=== PATIENT | female | born 1965 | race Caucasian/White ===

== ENCOUNTER → 2018-02-10 | Outpatient (CLI) | payer OTHER, BC ==
[~2018-02-10] MED LIST: ACET-2222 PO; ASP81CT PO; ATOR40TA70 PO; AZIT-21 PO; CPR500T PO; CYCL10TA9 PO; DCS100C PO; DICY10CA26 PO; DICY20TA57 PO; FIBER SUPPLEMENT; HYDR-3583 PO; HYDR12.56 PO; HYDR1TAB PO; HYOS0.1283 SL; LISI1TAB10 PO; LORA1TAB59 PO; MECL-106 PO; MECL25TA3 PO; METR500T PO; OMEP20TA7 PO; ONDA4TAB8 PO; PRCD5U PO; PRD10T PO; RANI-515 PO; RANI150C11 PO; SCOP1PAT11 TD; SUCR1ORA5 PO; TRIA10.8 NSEACH
--- NOTE | 2018-02-10 20:26 | Diagnostic Imaging Report ---
INDICATION: Injury to head EXAM: Noncontrast brain CT is performed FINDINGS: There is a punctate area of increased density in the right frontal lobe near the cohn-white junction, which may represent a punctate intraparenchymal hemorrhage. There is no subdural or epidural collection. Ventricles are normal in size. There are no other focal parenchymal abnormalities in the brain. Calvarial windows show no fracture. IMPRESSION: Punctate area of hyperdensity in the right frontal lobe near the cohn-white junction, which may represent a punctate area of intraparenchymal hemorrhage. This finding was not seen on the prior CT of 08/21/2015. There is no other abnormal finding. Findings were called to Alfonso Vela APRN, at the time of dictation. Dictated by: Dictated on workstation # [id number]
== END ==
LOC: RAD 18:34
PROVIDERS: ATTEND Nurse Practitioner Family
DX: S09.90XA Unspecified injury of head, initial encounter (principal); K57.32 Diverticulitis of large intestine without perforation or abscess without bleeding; I10 Essential (primary) hypertension
CPT/HCPCS: 70450

== ENCOUNTER → 2018-02-12 | Outpatient (CLI) | payer OTHER, BC ==
--- NOTE | 2018-02-12 17:55 | Diagnostic Imaging Report ---
PROCEDURE: CT head without contrast. TECHNIQUE: Multiple contiguous axial images were obtained through the brain without the use of intravenous contrast. INDICATION: Intracranial hemorrhage. FINDINGS: The recent CT head exam performed on 02/10/2018 raised the question of a minute area of hemorrhage in the right frontal lobe. On this exam, there is no sign of hemorrhage in the right frontal lobe. This finding could represent a minute parenchymal hemorrhage which is subsequently resolved. This could have also been related to volume averaging. The overall appearance of the brain is otherwise stable. There is no mass, shift of the midline, or hemorrhage to indicate an acute abnormality. The ventricles are stable in size. The bone windows show no sign of a fracture or of a destructive lesion. The orbits and sinuses are not visualized in their entirety; where visualized, there is no acute abnormality. IMPRESSION: 1. The small area of increased density in the right frontal lobe seen on the prior exam is not identified on this study. Whether that finding was related to a small parenchymal contusion which has subsequently resolved or volume averaging is not certain. 2. There is no acute intracranial abnormality noted. Dictated by: Dictated on workstation # [id number]
== END ==
LOC: RAD 15:47
PROVIDERS: ATTEND Nurse Practitioner Family
DX: S06.301A Unspecified focal traumatic brain injury with loss of consciousness of 30 minutes or less, initial encounter (principal); S39.012A Strain of muscle, fascia and tendon of lower back, initial encounter; S06.0X1A Concussion with loss of consciousness of 30 minutes or less, initial encounter; K57.32 Diverticulitis of large intestine without perforation or abscess without bleeding; I10 Essential (primary) hypertension; W01.10XA Fall on same level from slipping, tripping and stumbling with subsequent striking against unspecified object, initial encounter
CPT/HCPCS: 70450

== ENCOUNTER 2020-02-02 04:58 | Observation (INO) | payer BC, OTHER ==
[~2020-02-02] VITALS: Ht 155 cm; Wt 95.0 kg
[~2020-02-02 04:58] MED LIST changes: -LISI1TAB10 PO; +LISI1TAB26 PO; -MECL-106 PO; +MECL-149 PO; -RANI-515 PO; +RANI-609 PO
[2020-02-02] MEDS ORDERED: PANTOPRAZOLE 40 MG (PROTONIX) VIAL IV ONE (05:30)
[2020-02-02] MEDS ORDERED: ASPIRIN 81 MG CHEW (CHILDREN'S ASA) PO ONE (05:30)
[2020-02-02] MEDS ORDERED: ONDANSETRON 4 MG/2 ML (SDV) Z0FRAN IVP ONE (05:30)
[2020-02-02 05:31] LABS: BASOPHILS % (AUTO) 0 % (0-10); EOSINOPHILS # (AUTO) 0.1 10^3/uL (0.0-0.3); EOSINOPHILS % (AUTO) 2 % (0-10); HEMATOCRIT 41 % (35-52); HEMOGLOBIN 13.4 g/dL (11.5-16.0); LYMPHOCYTES # (AUTO) 2.1 10^3/uL (1.0-4.0); LYMPHOCYTES % (AUTO) 31 % (12-44); MEAN CORPUSCULAR HEMOGLOBIN 32 pg (25-34); MEAN CORPUSCULAR HGB CONC 32 g/dL (32-36); MEAN CORPUSCULAR VOLUME 98 fL (80-99); MEAN PLATELET VOLUME 10.9 fL (9.0-12.2); MONOCYTES # (AUTO) 0.3 10^3/uL (0.0-1.0); MONOCYTES % (AUTO) 4 % (0-12); NEUTROPHILS # (AUTO) 4.2 10^3/uL (1.8-7.8); NEUTROPHILS % (AUTO) 62 % (42-75); PLATELET COUNT 178 10^3/uL (130-400); WHITE BLOOD COUNT 6.8 10^3/uL (4.3-11.0)
[2020-02-02 05:45] LABS: ALBUMIN 4.1 GM/DL (3.2-4.5); CHLORIDE 105 MMOL/L (98-107); POTASSIUM 3.7 MMOL/L (3.6-5.0); SODIUM 143 MMOL/L (135-145)
[2020-02-02 05:46] LABS: AMYLASE 51 U/L (25-125)
[2020-02-02 05:47] LABS: CALCIUM 8.5 MG/DL (8.5-10.1)
[2020-02-02 05:48] LABS: GLUCOSE 101 MG/DL (70-105)
[2020-02-02 05:49] LABS: BILIRUBIN,TOTAL 0.5 MG/DL (0.1-1.0); CARBON DIOXIDE 26 MMOL/L (21-32)
[2020-02-02 05:50] LABS: INR 0.9 (0.8-1.4); PROTHROMBIN TIME PATIENT 12.7 SEC (12.2-14.7)
[2020-02-02 05:51] LABS: ALKALINE PHOSPHATASE 85 U/L (40-136); CREATININE SERUM 0.82 MG/DL (0.60-1.30); GFR ESTIMATED > 60
[2020-02-02 05:52] LABS: BUN/CREATININE RATIO 16
[2020-02-02 05:54] LABS: ALANINE AMINOTRANSFERASE 35 U/L (0-55); MAGNESIUM 2.1 MG/DL (1.6-2.4)
[2020-02-02 05:55] LABS: CREATINE KINASE 72 U/L (29-168); LIPASE 21 U/L (8-78)
--- NOTE | 2020-02-02 06:17 | ED Chest Pain ---
General Chief Complaint: Chest Pain Stated Complaint: CP,BACK PAIN Nursing Triage Note: woke up with burning epigastric pain approx. 0430 Nursing Sepsis Screen: No Definite Risk Source: patient History of Present Illness Date Seen by Provider: Feb 02, 2020 Time Seen by Provider: 05:10 Initial Comments PT ARRIVES VIA POV FROM HOME STATES SHE WOKE UP AT 0400 WITH CHEST PAIN AND EPIGASTRIC PAIN, RADIATING STRAIGHT THROUGH TO BACK/ BETWEEN SHOULDER BLADES RATES PAIN 9/10 NOTHING WORSENS OR IMPROVES PAIN NO SHORTNESS OF BREATH NO COUGH NO FEVER + NAUSEA, NO VOMITING NO SWELLING IN LEGS/ FEET OR PAIN IN CALVES HEART WAS BEATING REALLY HARD AND FAST WHEN SHE WOKE UP--THAT HAS IMPROVED NO HISTORY OF SIMILAR PT HAS HAD CHOLECYSTECTOMY IN THE PAST, HAS HAD A NORMAL STRESS TEST YEARS AGO. HAS HISTORY OF HTN--HAS NOT SEEN A DR IN A LONG TIME--WENT TO [facility] FOR FIRST AND ONLY TIME, AND WAS GIVEN RX FOR BLOOD PRESSURE MEDICATION--3 MONTH SUPPLY.- WAS A LONG TIME AGO. HAS CHRONIC LOWER BACK PAIN AND WEARS A TENS UNIT ON LOWER BACK PAIN THAT SHE IS HAVING IN HER UPPER BACK IS NOT THE SAME HER CHRONIC LOWER BACK PAIN HAS HAD EGD AND COLONOSCOPY IN THE PAST, AND NO STOMACH PROBLEMS, AND INCIDENTAL FINDING OF DIVERTICULAR DISEASE HAS BEEN ADMITTED HERE IN THE PAST FOR CHEST PAIN, LAST TIME WAS IN 2018 PCP: NAE --HAS ONLY BEEN THERE ONE TIME Allergies and Home Medications Allergies Coded Allergies: ciprofloxacin (Verified Allergy, Mild, 08/21/15) metronidazole (Verified Allergy, Mild, 08/21/15) latex (Unverified Allergy, Unknown, 06/06/15) Uncoded Allergies: STERI STRIPS (Allergy, Mild, RASH/ SORES, 11/02/09) Home Medications Cyclobenzaprine HCl 10 Mg Tablet, 10 MG PO DAILY PRN for MUSCLE SPASMS, (Reported) Diclofenac Sodium 20 Gm Gel..gram., 1 GM TP TID PRN for PAIN-BREAKTHROUGH, (Reported) APPLY TO BACK Diphenhydramine HCl 25 Mg Capsule, 25-50 MG PO Q6H PRN for HEADACHE SYMPTOMS, (Reported) Gabapentin 300 Mg Capsule, 300 MG PO BID, (Reported) Hydrocodone/Acetaminophen 1 Each Tablet, 1 EACH PO Q4H Prescribed by: CLARIBEL GORDON on 02/02/20 4118 Ibuprofen 800 Mg Tablet, 800 MG PO TID PRN for PAIN-MILD, (Reported) Magnesium Oxide 400 Mg Tablet, 400 MG PO DAILY, (Reported) Ondansetron HCl 4 Mg Tablet, 4 MG PO Q8H PRN for NAUSEA/VOMITING-1ST LINE, (Reported) Pantoprazole Sodium 40 Mg Tablet.dr, 40 MG PO DAILY Prescribed by: CLARIBEL GORDON on 02/02/201555 Sucralfate 1 Gm Tablet, 1 GM PO QID Prescribed by: CLARIBEL GORDON on 02/02/201555 Sumatriptan Succinate 100 Mg Tablet, 100 MG PO UD PRN for MIGRAINE, (Reported) 1 TAB AT ONSET OF MIGRAINE AND MAY REPEAT 1 DOSE AFTER 2 HOURS IF HEADACHE PERSISTS. Patient Home Medication List Home Medication List Reviewed: Yes Review of Systems Review of Systems Constitutional: no symptoms reported; No chills, No diaphoresis, No dizziness, No fever, No malaise, No weakness EENTM: No Symptoms Reported Respiratory: No Symptoms Reported; Denies Cough, Denies Shortness of Air Cardiovascular: See HPI, Chest Pain; Denies Edema, Denies Lightheadedness; Palpitations; Denies Syncope Gastrointestinal: See HPI, Abdominal Pain; Denies Diarrhea; Nausea; Denies Vomiting Genitourinary: No Symptoms Reported Musculoskeletal: see HPI, back pain Skin: no symptoms reported Psychiatric/Neurological: No Symptoms Reported Endocrine: No Symptoms Reported Hematologic/Lymphatic: No Symptoms Reported Past Mmtnjtd-Hgluom-Mrhojp Hx Past Med/Social Hx: Reviewed and Corrections made Patient Social History Alcohol Use: Rarely Uses Recreational Drug Use: No Smoking Status: Current Everyday Smoker (1/2 PPD) Type Used: Cigarettes (1/2 PPD) Recent Foreign Travel: No Contact w/Someone Who Travel: No Recent Infectious Disease Expo: No Recent Hopitalizations: No Immunizations Up To Date Tetanus Booster (TDap): Unknown PED Vaccines UTD: Yes Date of Influenza Vaccine: May 04, 2012 Seasonal Allergies Seasonal Allergies: No Past Medical History Surgeries: Yes (OVARIAN CYSTS; EGD/COLONOSCOPY; X 4;HYST/BSO) Abdominal, Appendectomy, Section, Gallbladder, Hysterectomy, Oophorectomy Respiratory: Yes (tobaccoism, PULMONARY NODULES) Cardiac: Yes (NEGATIVE STRESS TEST 2012 & 06/2017-EF 77%, ECHO 2013 WITH EF 60% ) Hypertension Neurological: No : No Reproductive Disorders: Yes (BENIGN UTERINE MASS) Female 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 Sexually Transmitted Disease: No HIV/AIDS: No Genitourinary: Yes Kidney Infection, Bladder Infection Gastrointestinal: Yes (S/P REAL; APPY; ) Gastroesophageal Reflux, Diverticulosis, Gall Bladder Disease Musculoskeletal: Yes Chronic Back Pain Endocrine: No HEENT: No Cancer: No Psychosocial: No Integumentary: No Blood Disorders: No Family Medical History Cancer 19 FATHER Family history: Hypertension 19 FATHER 19 MOTHER G8 BROTHER History of - anemia G8 SISTER Cancer Physical Exam Vital Signs Vital Signs - First Documented Capillary Refill : Less Than 3 Seconds Height, Weight, BMI Height: 5'1.00" Weight: 188lbs. 0.0oz. [id number]; 39.00 BMI Method:Stated General Appearance: No Apparent Distress, WD/WN, Obese HEENT: PERRL/EOMI Neck: Normal Inspection Respiratory: Chest Non Tender, Normal Breath Sounds, No Accessory Muscle Use, No Respiratory Distress Cardiovascular: Regular Rate, Rhythm, No Edema, No JVD, No Murmur, Normal Peripheral Pulses Gastrointestinal: Normal Bowel Sounds, No Organomegaly, No Pulsatile Mass, Soft, Tenderness (MILD EPIGASTRIC TENDERNESS) Extremity: Normal Capillary Refill, Normal Inspection, Normal Range of Motion, Non Tender, No Calf Tenderness, No Pedal Edema Neurologic/Psychiatric: Alert, Oriented x3, No Motor/Sensory Deficits, Normal 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, 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 Norm as Tested Skin: Normal Color, Warm/Dry Progress/Results/Core Measures Results/Orders Lab Results Laboratory Tests Test 02/02/20 05:15 Range/Units White Blood Count 6.8 4.3-11.0 10^3/uL Red Blood Count 4.23 3.80-5.11 10^6/uL Hemoglobin 13.4 11.5-16.0 g/dL Hematocrit 41 35-52 % Mean Corpuscular Volume 98 80-99 fL Mean Corpuscular Hemoglobin 32 25-34 pg Mean Corpuscular Hemoglobin Concent 32 32-36 g/dL Red Cell Distribution Width 12.7 10.0-14.5 % Platelet Count 178 130-400 10^3/uL Mean Platelet Volume 10.9 9.0-12.2 fL Immature Granulocyte % (Auto) 0 % Neutrophils (%) (Auto) 62 42-75 % Lymphocytes (%) (Auto) 31 12-44 % Monocytes (%) (Auto) 4 0-12 % Eosinophils (%) (Auto) 2 0-10 % Basophils (%) (Auto) 0 0-10 % Neutrophils # (Auto) 4.2 1.8-7.8 10^3/uL Lymphocytes # (Auto) 2.1 1.0-4.0 10^3/uL Monocytes # (Auto) 0.3 0.0-1.0 10^3/uL Eosinophils # (Auto) 0.1 0.0-0.3 10^3/uL Basophils # (Auto) 0.0 0.0-0.1 10^3/uL Immature Granulocyte # (Auto) 0.0 0.0-0.1 10^3/uL Prothrombin Time 12.7 12.2-14.7 SEC INR Comment 0.9 0.8-1.4 Activated Partial Thromboplast Time 31 24-35 SEC Sodium Level 143 135-145 MMOL/L Potassium Level 3.7 3.6-5.0 MMOL/L Chloride Level 105 98-107 MMOL/L Carbon Dioxide Level 26 21-32 MMOL/L Anion Gap 12 5-14 MMOL/L Blood Urea Nitrogen 13 7-18 MG/DL Creatinine 0.82 0.60-1.30 MG/DL Estimat Glomerular Filtration Rate > 60 BUN/Creatinine Ratio 16 Glucose Level 101 70-105 MG/DL Calcium Level 8.5 8.5-10.1 MG/DL Corrected Calcium 8.4 L 8.5-10.1 MG/DL Magnesium Level 2.1 1.6-2.4 MG/DL Total Bilirubin 0.5 0.1-1.0 MG/DL Aspartate Amino Transf (AST/SGOT) 48 H 5-34 U/L Alanine Aminotransferase (ALT/SGPT) 35 0-55 U/L Alkaline Phosphatase 85 40-136 U/L Total Creatine Kinase 72 29-168 U/L Creatine Kinase MB 0.5 <6.6 NG/ML Myoglobin 20.0 10.0-92.0 NG/ML Troponin I < 0.028 <0.028 NG/ML B-Type Natriuretic Peptide < 10.0 <100.0 PG/ML Total Protein 7.0 6.4-8.2 GM/DL Albumin 4.1 3.2-4.5 GM/DL Amylase Level 51 25-125 U/L Lipase 21 8-78 U/L My Orders Orders - PAULA BENSON DO Cbc With Automated Diff (02/02/20 05:20) Magnesium (02/02/20 05:20) Chest 1 View, Ap/Pa Only (02/02/20 05:20) Ekg Tracing (02/02/20 05:20) Comprehensive Metabolic Panel (02/02/20 05:20) Myoglobin Serum (02/02/20 05:20) Protime With Inr (02/02/20 05:20) Partial Thromboplastin Time (02/02/20 05:20) O2 (02/02/20 05:20) Monitor-Rhythm Ecg Trace Only (02/02/20 05:20) Ed Iv/Invasive Line Start (02/02/20 05:20) Creatine Kinase (02/02/20 05:20) Creatine Kinase Mb (02/02/20 05:20) Lipase (02/02/20 05:20) Amylase (02/02/20 05:20) Aspirin Chewable Tablet (Baby Aspirin Ch (02/02/20 05:30) Ed Iv/Invasive Line Start (02/02/20 05:20) Ondansetron Injection (Zofran Injectio (02/02/20 05:30) Pantoprazole Injection (Protonix Injecti (02/02/20 05:30) BNP (02/02/20 05:49) Troponin I (02/02/20 05:15) Ct Domonique Chest/Noang Abd-Pelv W (02/02/20 06:06) Iohexol Injection (Omnipaque 350 Mg/Ml 1 (02/02/20 07:15) Received Contrast (Hold Metformin- Contr (02/02/20 07:15) Ns (Ivpb) (Sodium Chloride 0.9% Ivpb Bag (02/02/20 07:15) Nitroglycerin 0.4 Mg Btl 25's (Nitrostat (02/02/20 07:45) Medications Given in ED Current Medications Medications Dose Ordered Sig/Parvin Route Start Time Stop Time Status Last Admin Dose Admin Iohexol 100 ml ONCE ONCE IV 02/02/20 07:15 02/02/20 07:27 DC 02/02/20 07:39 100 ML Nitroglycerin 1 TAB Q 5 MIN X 3 NEEDED PRN SL 02/02/20 07:45 02/02/20 10:23 DC 02/02/20 08:33 0.4 MG Sodium Chloride 100 ml ONCE ONCE IV 02/02/20 07:15 02/02/20 07:27 DC 02/02/20 07:39 80 ML Vital Signs/I&O 02/02/20 02/02/20 05:10 05:10 Temp 36.5 Pulse 77 Resp 18 B/P (MAP) 136/84 (101) Pulse Ox 100 O2 Delivery Room Air Room Air Blood Pressure Mean: 101 Progress Progress Note : Progress Note GIVEN ASPIRIN, PROTONIX AND ZOFRAN ALSO GAVE NTG SL SYMPTOMS IMPROVED AT TIME OF ADMIT Initial ECG Impression Date: Feb 02, 2020 Initial ECG Impression Time: 05:14 Initial ECG Rate: 76 Initial ECG Rhythm: Normal Sinus Initial ECG Comparisson: Unchanged Diagnostic Imaging Comments CXR--?BIBASILAR ATELECTASIS/INFILTRATES?--PENDING RADIOLOGIST REVIEW CT ANGIOGRAM CHEST/ABDOMEN - PELVIS--PER RADIOLOGIST REPORT AT 0734 CTA chest: There is a calcified 1 cm nodule in the left lower lobe. No suspicious mass or infiltrate is seen. There is no effusion or pneumothorax. There is no mediastinal mass or hemorrhage. There is no aortic aneurysm or dissection. There is no pulmonary embolus. No acute bony abnormality is seen. CT abdomen and pelvis: The gallbladder is absent. The liver and bile ducts are normal. There is streak artifact in the upper and mid abdomen secondary to motion and large body habitus which may obscure subtle abnormalities but no abnormality of the pancreas is seen. The spleen is within normal limits. No adrenal abnormality is evident. Kidneys, ureters and bladder are normal. There are scattered diverticula in the colon with no acute diverticulitis or other acute bowel abnormality evident. There is no free intraperitoneal air or fluid. There is no aortic aneurysm, stenosis or dissection. The celiac axis and SMA are patent. The hepatic artery arises from the SMA origin seen as a variant. There is no acute bony abnormality. IMPRESSION: No acute abnormality is seen with no aortic aneurysm or dissection. There is diverticulosis of the colon. Reviewed: Reviewed by La Departure Communication (Admissions) [id number]--SPOKE WITH DR. ORELLANA, HOSPITALIST FOR [facility] [place], ACCEPTS PT FOR ADMIT. WOULD LIKE RAPID COVID-19 TEST DONE PRIOR TO GOING TO FLOOR. Impression Primary Impression: Chest pain Disposition: ADMITTED INPATIENT Condition: Improved Admissions Decision to Admit Reason: Admit from ER (General) Decision to Admit/Date: Feb 02, 2020 Time/Decision to Admit Time: 07:45 Departure-Patient Inst. Referrals: [facility] (PCP/Family) Primary Care Physician Scripts Hydrocodone/Acetaminophen (Hydrocodone-Acetamin 5-325 mg) 1 Each Tablet 1 EACH PO Q4H, #30 TAB Prov: CLARIBEL GORDON MD 02/02/20 Sucralfate (Carafate) 1 Gm Tablet 1 GM PO QID for 14 Days, #120 TAB Prov: CLARIBEL GORDON MD 02/02/20 Pantoprazole Sodium (Protonix) 40 Mg Tablet.dr 40 MG PO DAILY, #90 TAB Prov: CLARIBEL GORDON MD 02/02/20 PAULA BENSON DO Feb 02, 2020 06:17
[2020-02-02 06:18] LABS: CREATINE KINASE MB 0.5 NG/ML (<6.6)
--- NOTE | 2020-02-02 06:31 | Diagnostic Imaging Report ---
INDICATION: Chest pain. FINDINGS: Upright portable chest shows normal heart size and vascularity. The lungs are clear. There is no effusion or pneumothorax. There is no bony abnormality. IMPRESSION: Normal portable chest with no change from 06/07/2017. Dictated by: Dictated on workstation # [id number]
[2020-02-02] MEDS ORDERED: NS 100 ML (IVPB) BAG IV ONE (07:15)
[2020-02-02] MEDS ORDERED: HOLD METFORMIN - RECEIVED CONTRAST 20 ML VIAL IV SCH (07:15)
[2020-02-02] MEDS ORDERED: IOHEXOL 350 MG/ML 100 ML (OMNIPAQUE 350) VIAL IV ONE (07:15)
--- NOTE | 2020-02-02 07:27 | Diagnostic Imaging Report ---
INDICATION: UPPER ABDOMINAL PAIN , CP, CTA chest, abdomen and pelvis Thin axial sections through the chest, abdomen and pelvis are obtained following intravenous contrast bolus. Multiplanar MIP images were reconstructed and reviewed. All CT scans use one or more of the following dose optimizing techniques: automated exposure control, MA and/or KvP adjustment based on patient size and exam type or iterative reconstruction. CTA chest: There is a calcified 1 cm nodule in the left lower lobe. No suspicious mass or infiltrate is seen. There is no effusion or pneumothorax. There is no mediastinal mass or hemorrhage. There is no aortic aneurysm or dissection. There is no pulmonary embolus. No acute bony abnormality is seen. CT abdomen and pelvis: The gallbladder is absent. The liver and bile ducts are normal. There is streak artifact in the upper and mid abdomen secondary to motion and large body habitus which may obscure subtle abnormalities but no abnormality of the pancreas is seen. The spleen is within normal limits. No adrenal abnormality is evident. Kidneys, ureters and bladder are normal. There are scattered diverticula in the colon with no acute diverticulitis or other acute bowel abnormality evident. There is no free intraperitoneal air or fluid. There is no aortic aneurysm, stenosis or dissection. The celiac axis and SMA are patent. The hepatic artery arises from the SMA origin seen as a variant. There is no acute bony abnormality. IMPRESSION: No acute abnormality is seen with no aortic aneurysm or dissection. There is diverticulosis of the colon. Dictated by: Dictated on workstation # [id number]
[2020-02-02] MEDS: NITROGLYCERIN 0.4 MG SL TABS BTL 25'S SL PRN ×2 (07:47→08:33)
--- NOTE | 2020-02-02 08:07 | NUR ---
TECH TO ROOM TO DO IN HOUSE COVID
[2020-02-02] MEDS ORDERED: ANTACID SUSP 30 ML UDC (MYLANTA) ONE (08:49)
[2020-02-02] MEDS ORDERED: LIDOCAINE 2% VISCOUS 15 ML UDC ONE (08:49)
[2020-02-02] MEDS ORDERED: FAMOTIDINE 20MG/2ML IV (PEPCID) IV STA (08:49)
--- NOTE | 2020-02-02 08:58 | NUR ---
PT REPORTS EPIGASTRIC PRESSURE IMPROVED AFTER GI COCKTAIL
[2020-02-02] MEDS ORDERED: LIDOCAINE 2% VISCOUS 15 ML UDC PO ONE (09:00)
[2020-02-02] MEDS ORDERED: ANTACID SUSP 30 ML UDC (MYLANTA) PO ONE (09:00)
--- NOTE | 2020-02-02 09:59 | Short Stay Summary-Hospitalist ---
History of Present Illness HPI/Chief Complaint CC: Chest Pain HPI: This is a 54yoWF who presented to the ER with chest pain. Pt does smoke and has HTN and has risk factors for a true coronary syndrome. She was admitted, cardiology evaluated her, will need an outpatient stress test. Morphine and Zofran were given for severe pain which was at proportion that I would expect but I did go ahead and consult Dr. David who may need to do a evaluation for esophagitis. Smoking cessation was counseled. Source: patient Exam Limitations: no limitations Date Seen 02/02/20 Time Seen by a Provider: 11:00 Attending Physician Perla Lopez DO [facility] [place] Referring Physician Date of Admission Feb 02, 2020 at 07:45 Home Medications & Allergies Home Medications Reviewed patient Home Medication Reconciliation performed by pharmacy medication reconciliations appliance repair technician and/or nursing. Patients Allergies have been reviewed. Allergies Allergies Coded Allergies ciprofloxacin (Verified Allergy, Mild, 08/21/15) metronidazole (Verified Allergy, Mild, 08/21/15) latex (Unverified Allergy, Unknown, 06/06/15) Uncoded Allergies STERI STRIPS ( Allergy, Mild, RASH/ SORES, 11/02/09) Past Haxqloo-Uzvuop-Lnhzoj Hx Past Med/Social Hx: Reviewed Nursing Past Med/Soc Hx, Reviewed and Corrections made Patient Social History Alcohol Use: Rarely Uses Alcohol Beverage of Choice: Wine Recreational Drug Use: No Smoking Status: Current Everyday Smoker Type Used: Cigarettes Physical Abuse Screen: No Sexual Abuse: No Recent Foreign Travel: No Contact w/other who traveled: No Recent Hopitalizations: No Recent Infectious Disease Expo: No Immunizations Up To Date Tetanus Booster (TDap): Unknown Pediatric: Yes Date of Influenza Vaccine: May 04, 2012 Seasonal Allergies Seasonal Allergies: No Past Medical History Surgeries: Abdominal, Appendectomy, Section, Gallbladder, Hysterectomy, Oophorectomy Currently Using CPAP: No Currently Using BIPAP: No Cardiac: Hypertension : No Reproductive: Yes (BENIGN UTERINE MASS) Sexually Transmitted Disease: No HIV/AIDS: No Female Reproductive Disorders: Ovarian Cyst Hysterectomy Genitourinary: Kidney Infection, Bladder Infection Gastrointestinal: Gastroesophageal Reflux, Diverticulosis, Gall Bladder Disease Musculoskeletal: Chronic Back Pain Skin/Integumentary: Recent Skin Changes History of Blood Disorders: No Adverse Reaction to Blood Ortiz: No Family History Cancer 19 FATHER Family history: Hypertension 19 FATHER 19 MOTHER G8 BROTHER History of - anemia G8 SISTER Cancer Review of Systems Constitutional: see HPI Cardiovascular: chest pain Physical Exam Physical Exam Vital Signs Vital Signs - First Documented Capillary Refill : Less Than 3 Seconds Height, Weight, BMI Height: 5'1.00" Weight: 188lbs. 0.0oz. 85.937739ca; 39.00 BMI Method:Stated General Appearance: No Apparent Distress, WD/WN, Obese HEENT: PERRL/EOMI Neck: Normal Inspection Respiratory: Chest Non Tender, Normal Breath Sounds, No Accessory Muscle Use, No Respiratory Distress Cardiovascular: Regular Rate, Rhythm, No Edema, No JVD, No Murmur, Normal Peripheral Pulses Gastrointestinal: Normal Bowel Sounds, No Organomegaly, No Pulsatile Mass, Soft, Tenderness (MILD EPIGASTRIC TENDERNESS) Extremity: Normal Capillary Refill, Normal Inspection, Normal Range of Motion, Non Tender, No Calf Tenderness, No Pedal Edema Neurologic/Psychiatric: Alert, Oriented x3, No Motor/Sensory Deficits, Normal 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 Short Stay Diagnosis Discharge Diagnosis-Short Stay Admission Diagnosis Chest pain Final Discharge Diagnosis Chest pain Smoker GERD Anxiety Conclusion Plan DC home Appreciate Karis Jo and Frankie Diagnosis/Problems Diagnosis/Problems (1) Chest pain Status: Acute Clinical Quality Measures AMI/AHF: ASA po Prior to arrival: PERLA Caldwell DO Feb 02, 2020 09:59
[2020-02-02] MEDS ORDERED: NITROGLYCERIN 0.4 MG SL TABS BTL 25'S SL PRN (10:30)
[2020-02-02] MEDS ORDERED: ONDANSETRON 4 MG/2 ML (SDV) Z0FRAN IVP PRN ×2 (10:30)
[2020-02-02] MEDS: morphine INJ 4 MG/ML 1 ML (VIAL/SYRINGE) IV PRN ×2 (10:58→15:34)
--- NOTE | 2020-02-02 11:05 | Consultation-Cardiology ---
HPI-Cardiology Cardiology Consultation Date of Consultation 02/02/20 Date of Admission Time Seen by Provider: 10:55 Indication: Chest pain HPI Patient is a 54 y/o female with history of HLP, GERD. Had been in her usual state of health, woke up earlier this morning with sudden onset of epigastic and substernal pain with radiation to her back. Associated palpitations this morning , lasting for several minutes. Denies any dizziness or syncope. Patient c/o active episgastric pain at this time, reporducible with palpation. Home Medications & Allergies Allergies: Coded Allergies: ciprofloxacin (Verified Allergy, Mild, 08/21/15) metronidazole (Verified Allergy, Mild, 08/21/15) latex (Unverified Allergy, Unknown, 06/06/15) Uncoded Allergies: STERI STRIPS (Allergy, Mild, RASH/ SORES, 11/02/09) Home Medication List Reviewed: Yes KGO-Wsbpko-Otclib Hx Patient Social History Marital Status: single Alcohol Use: Rarely Uses Recreational Drug Use: No Smoking Status: Current Everyday Smoker Type Used: Cigarettes Recent Foreign Travel: No Recent Infectious Disease Expo: No Recent Hopitalizations: No Physical Abuse Screen: No Sexual Abuse: No Immunizations Up To Date Tetanus Booster (TDap): Unknown Date of Influenza Vaccine: May 04, 2012 Past Medical History HLP, tobaccoism Family Medical History Significant Family History: Cancer Family History: Cancer 19 FATHER Family history: Hypertension 19 FATHER 19 MOTHER G8 BROTHER History of - anemia G8 SISTER Review of Systems-General Review of Systems Constitutional: no symptoms reported, see HPI; No chills, No diaphoresis, No dizziness, No fever, No malaise, No weakness EENTM: see HPI; No blurred vision, No double vision Respiratory: see HPI; No cough, No dyspnea on exertion, No orthopnea Cardiovascular: see HPI, chest pain; No edema, No Hx of Intervention; palpitations Gastrointestinal: see HPI, abdominal pain (epigastric); No dysphagia, No hematemesis; heartburn Genitourinary: No dysuria, No frequency; hematuria Musculoskeletal: see HPI, back pain Skin: no symptoms reported Psychiatric/Neurological: No Symptoms Reported Reviewed Test Results Reviewed Test Results Lab Laboratory Tests 02/02/20 05:15: White Blood Count 6.8, Red Blood Count 4.23, Hemoglobin 13.4, Hematocrit 41, Mean Corpuscular Volume 98, Mean Corpuscular Hemoglobin 32, Mean Corpuscular Hemoglobin Concent 32, Red Cell Distribution Width 12.7, Platelet Count 178, Mean Platelet Volume 10.9, Immature Granulocyte % (Auto) 0, Neutrophils (%) (Auto) 62, Lymphocytes (%) (Auto) 31, Monocytes (%) (Auto) 4, Eosinophils (%) (Auto) 2, Basophils (%) (Auto) 0, Neutrophils # (Auto) 4.2, Lymphocytes # (Auto) 2.1, Monocytes # (Auto) 0.3, Eosinophils # (Auto) 0.1, Basophils # (Auto) 0.0, Immature Granulocyte # (Auto) 0.0, Prothrombin Time 12.7, INR Comment 0.9, Activated Partial Thromboplast Time 31, Sodium Level 143, Potassium Level 3.7, Chloride Level 105, Carbon Dioxide Level 26, Anion Gap 12, Blood Urea Nitrogen 13, Creatinine 0.82, Estimat Glomerular Filtration Rate > 60, BUN/Creatinine Ratio 16, Glucose Level 101, Calcium Level 8.5, Corrected Calcium 8.4L, Magnesium Level 2.1, Total Bilirubin 0.5, Aspartate Amino Transf (AST/SGOT) 48H, Alanine Aminotransferase (ALT/SGPT) 35, Alkaline Phosphatase 85, Total Creatine Kinase 72, Creatine Kinase MB 0.5, Myoglobin 20.0, Troponin I < 0.028, B-Type Natriuretic Peptide < 10.0, Total Protein 7.0, Albumin 4.1, Amylase Level 51, Lipase 21 02/02/20 08:06: Coronavirus 2019 ([facility]) Negative 02/02/20 10:30: ECG Impression ECG Initial ECG Rhythm: Normal Sinus Physical Exam Physical Exam Vital Signs Vital Signs - First Documented Capillary Refill : Less Than 3 Seconds Height, Weight, BMI Height: 5'1.00" Weight: 188lbs. 0.0oz. 85.415231uy; 39.00 BMI Method:Stated General Appearance: No Apparent Distress, WD/WN, Obese HEENT: PERRL/EOMI Neck: Normal Inspection Respiratory: Chest Non Tender, Normal Breath Sounds, No Accessory Muscle Use, No Respiratory Distress Cardiovascular: Regular Rate, Rhythm, No Edema, No JVD, No Murmur, Normal Peripheral Pulses Gastrointestinal: Normal Bowel Sounds, No Organomegaly, No Pulsatile Mass, Soft, Tenderness (MILD EPIGASTRIC TENDERNESS) Extremity: Normal Capillary Refill, Normal Inspection, Normal Range of Motion, Non Tender, No Calf Tenderness, No Pedal Edema Neurologic/Psychiatric: Alert, Oriented x3, No Motor/Sensory Deficits, Normal Mood/Affect, medicine tech II-XII Norm as Tested Skin: Normal Color, Warm/Dry A/P-Cardiology Admission Diagnosis Chest pain HLP GERD Tobaccoism Assessment/Plan Chest pain, nonspecific etiology, currently c/o epigastric pain, worse with palpation, radiating to her upper back. EKG reveals SR with no acute changes, cardiac enzymes negative. Stress test done 2 years ago negative for ischemia. Unlikely to be cardiac in nature. Can do stress test as outpatient. Hyperlipidemia, poorly controlled,discussed diet and exercise for better controll, continue to monitor as outpatient. GERD- continue Protonix. Will likely need EGD as outpatient Tobaccoism, educated on the importance of smoking cessation. Obesity Thank you for allowing us to participate in the management of Ms. Bateman. This is Guerita Wells PA-C, as a scribe for Dr. Jo. Patient was seen and evaluated with Guerita, examination performed, management plan was discussed, agree with the current scribed note, I made few changes to the note using Italic font Patient was seen at bedside, feeling better, her chest pain/abdominal pain is better Discussed the management plan recommended stress test as an outpatient. Cardiac enzymes and EKG did not show any acute abnormality Possible EGD, discussed the management with Dr. Lopez. Clinical Quality Measures AMI/AHF: ASA po Prior to arrival: No GUERITA SIDHU Feb 02, 2020 11:04 CORDELL JO MD Feb 02, 2020 16:49
[2020-02-02] MEDS ORDERED: DICL20GE TP (13:42)
[2020-02-02] MEDS ORDERED: IBUP-1780 PO (13:42)
[2020-02-02] MEDS ORDERED: ONDA-105 PO (13:42)
[2020-02-02] MEDS ORDERED: SUMA100T2 PO (13:42)
[2020-02-02] MEDS ORDERED: DIPH25CA79 PO (13:42)
[2020-02-02] MEDS ORDERED: GABA300C PO (13:42)
[2020-02-02] MEDS ORDERED: MAGN400T7 PO (13:43)
--- NOTE | 2020-02-02 13:47 | NUR ---
SPOKE WITH THE PT (I CALLED HER ROOM PHONE) [facility] [place] [facility] THE FOLLOWING MEDICATIONS WERE FILLED ON 02-01-2020: CYCLOBENZAPRINE 10MG VOLTAREN GEL GABAPENTIN 300MG- DIRECTIONS SHOW 1 TAB TID BUT PT ONLY TAKES BID IBUPROFEN 800MG ONDANSETRON 4MG IMITREX 100MG PT LET ME KNOW SHE PICKED UP PROPRANOLOL 60MG ON THE SAME DATE HOWEVER SHE HAS NOT STARTED TAKING YET PT ALSO TOLD ME THAT THE SHE GETS BENADRYL AND MAG-OX A PRESCRIPTION HOWEVER THEY HAVE NOT DISPENSED THEM THROUGH THE PHARMACY- MAIN THINKS THEY GOT IT OVER THE COUNTER AND PUT THEM WITH HER PRESCRIPTIONS
--- NOTE | 2020-02-02 14:15 | NUR ---
RECEIVED FROM ICU PER W/C, REPORT RECEIVED FROM SHAKEEL CABEZAS, PATIENT ALERT AND ORIENTED, ON ROOM AIR, DENIES CHEST PAIN OR SOB AT THIS TIME, CALL LIGHT WITHIN REACH, TELEMETRY ON
[2020-02-02] MEDS ORDERED: SUCR1TAB36 PO (15:56)
[2020-02-02] MEDS ORDERED: ACHD5005 PO (15:56)
[2020-02-02] MEDS ORDERED: PANT40TA2 PO (15:56)
--- NOTE | 2020-02-02 15:56 | Discharge Inst-Surgical ---
D/C Lap Instructions-KIDO New, Converted, or Re-Newed RX: RX on Chart Follow Up Appt in 2-4 weeks Activity as tolerated High Fiber Diet 25g or more per day Avoid Alcohol, Caffeine, Spicy Deltana and Acid foods. Drink 64 fluid oz or more of fluids per day. Symptoms to Report: Fever over 101 degree F, Nausea/Vomiting If any problems/questions: Contact your physician or go to Emergency Room CLARIBEL GORDON MD Feb 02, 2020 15:56
[2020-02-02] MEDS ORDERED: HYDROcodone/APAP 5 MG/325 MG (LORTAB) TAB PO PRN (16:00)
[2020-02-02] MEDS ORDERED: SUCRALFATE 1 GM (CARAFATE) TAB PO SCH (16:00)
--- NOTE | 2020-02-02 16:00 | NUR ---
REQUESTED PAIN PILL, C/O EPIGASTRIC PAIN AFTER EATING, DR GORDON NOTIFIED
--- NOTE | 2020-02-02 18:06 | CONSULTATION REPORT ---
DATE OF SERVICE: 02/02/2020 ATTENDING PHYSICIAN: Dr. Lopez. HISTORY OF PRESENT ILLNESS: The patient is a 54-year-old patient, who was seen in consultation with Dr. David. She reports that she woke up early this morning around 4:30 with significant epigastric and substernal chest pain and reports that this did radiate towards her back. She reports that this lasted for quite some time and did eventually presented to the emergency department at [facility]. She does report a history of gastroesophageal reflux disease and has taken Zantac in the past, which she reports did help; however, stopped taking the medication once this was removed from the market. She did report episodes of nausea, but no vomiting. She reports that she has had an EGD before in the past; however, this has been several years, but does not recall what was found. She also reports that she has had a colonoscopy in the past and was found to have diverticulosis. Upon further questioning, she reports that she does smoke cigarettes daily and has done so for 40 years. She does report that she does eat some spicy foods and does do approximately three cups of coffee a day as well as a couple cups of tea. She denied any significant intake of greasy or acidic foods as well as little to no alcohol. PAST MEDICAL HISTORY: Gastroesophageal reflux disease, traumatic brain injury, degenerative disk disease of the back, hypertension, hypercholesterolemia, migraines, and diverticulosis. PAST SURGICAL HISTORY: x4, ovarian cyst removed bilaterally, cholecystectomy, appendectomy, complete hysterectomy and wisdom teeth removed. ALLERGIES: STERI-STRIPS, CIPRO, LATEX, FLAGYL. MEDICATIONS: 1. Flexeril 10 mg daily p.r.n. 2. Diclofenac gel t.i.d. p.r.n. 3. Benadryl 25 mg one to two tablets by mouth q.6 hours as needed. 4. Gabapentin 300 mg b.i.d. 5. Ibuprofen 800 mg t.i.d. p.r.n. 6. Magnesium oxide 400 mg daily. 7. Zofran 4 mg q.8 hours as needed. 8. Imitrex 100 mg p.r.n. SOCIAL HISTORY: Positive for smoke for 40 pack years. Rare for alcohol. FAMILY HISTORY: Noncontributory. REVIEW OF SYSTEMS: This is a well-nourished female in no acute distress. She is not experiencing any shortness of breath or difficulty breathing. She did report epigastric and substernal chest pain. She denies any palpitations or diaphoresis. She does report episodes of nausea, but no vomiting. Again, she does report epigastric abdominal pain that does radiate through her chest and her back. No diarrhea or constipation. No red blood per rectum. No dark tarry stools. No fever or chills. No recent inadvertent weight loss. All other review of systems negative. PHYSICAL EXAMINATION: VITAL SIGNS: Temperature 36.3 degrees Celsius, pulse 69, respirations 18, blood pressure 119/75 and pulse ox 99% on room air. CHEST: Clear. Good breath sounds bilaterally. HEART: , no murmurs. HEENT: No scleral icterus. NECK: No cervical lymphadenopathy. ABDOMEN: Soft and nondistended. There is some moderate tenderness and discomfort with palpation in the epigastric region. No palpable masses. No organomegaly. SKIN: Warm, dry and pink. NEUROLOGIC: Awake, alert and oriented x3. ASSESSMENT AND PLAN: A 54-year-old female with epigastric as well as chest pain that does radiate to her back. At this time, she is currently admitted, undergoing a cardiac workup to rule out any potential cardiac events. She does have a history of gastroesophageal reflux disease. However, does not currently take any medications for her reflux. We will at this time start her on Protonix 40 mg daily and have her follow up with us on an outpatient basis to proceed with scheduling her for a followup EGD. The patient verbalized understanding of instructions. Job ID: [id number] DocumentID: [id number] Dictated Date: 02/02/2020 14:01:03 News Director Date: 02/02/2020 18:05:32 Dictated By: PRECIOUS PASCUAL APRN
--- NOTE | 2020-02-02 18:50 | NUR ---
DISMISSED PER W/C, ACCOMPANIED BY STAFF, ATE 75 PERCENT DINER, NO C/O PAIN AT THIS TIME.
[2020-02-02 18:58] VITALS: BP 123/76
[2020-02-03] MEDS ORDERED: ASPIRIN E.C. 81 MG (ECOTRIN) TAB PO SCH (09:00)
[2020-02-03] MEDS ORDERED: PANTOPRAZOLE 40 MG (PROTONIX) VIAL IV SCH (09:00)
== END 2020-02-02 17:00 | disposition home or self-care (01) ==
LOC: EDUNIT# 04:58 → ER 05:01 → UNDOADMOB 07:45 → EDLOC 07:45 → INTOOBSV 07:45 → CSD 07:45 → EDLOC 09:05 → 4TH 14:19 → ER 14:19 → CSD 14:19 → UNDODISOB 18:50
PROVIDERS: ADMIT Internal Medicine; ATTEND Internal Medicine
DX: R07.9 Chest pain, unspecified (principal); F41.9 Anxiety disorder, unspecified; K21.9 Gastro-esophageal reflux disease without esophagitis; F17.210 Nicotine dependence, cigarettes, uncomplicated; Z90.710 Acquired absence of both cervix and uterus; Z90.722 Acquired absence of ovaries, bilateral; Z20.828 Contact with and (suspected) exposure to other viral communicable diseases; Z80.9 Family history of malignant neoplasm, unspecified
CPT/HCPCS: 71045; 71275; 74177; 80053; 82150; 82550; 82553; 83690; 83735; 83874; 83880; 84484; 85025; 85610; 85730; 93005; 93041; 93306; 96374; 96375; 99284; G0378; U0002; 36415; 87635

== ENCOUNTER 2020-02-05 20:06 | Emergency (ER) | payer SELFPAY ==
[~2020-02-05] VITALS: Ht 154.9 cm; Wt 95.3 kg
[~2020-02-05 20:06] MED LIST changes: +ACHD5005 PO; +DICL20GE TP; +DIPH25CA79 PO; +GABA300C PO; +IBUP-1780 PO; +MAGN400T7 PO; +ONDA-105 PO; +PANT40TA2 PO; +SUCR1TAB36 PO; +SUMA100T2 PO
--- NOTE | 2020-02-05 21:34 | ED Abdominal Pain ---
General Chief Complaint: Abdominal/GI Problems Stated Complaint: ABD PAIN Nursing Triage Note: PT AMBULATE TO TRIAGE WITH C/O ABD PAIN. PT REPORTS SHE WAS SEEN IN THIS ED FOR SAME C/O AND INSTRUCTED TO SCHEDULE AN UPPER GI AND CONTACT A PROCESS TRAINER. PT REPORTS SHE CANNOT EAT ANYTHING. PT REPORTS SHE HAS TAKEN NOTHING FOR PAIN. PT STATES SHE HAS NOT PICKED UP ANY OF THE PRESCRIBED MEDICATIONS BECAUSE SHE DOES NOT HAVE THE MONEY. Sepsis Screen: No Definite Risk Source of Information: Patient Exam Limitations: No Limitations (ONEL LOCKHART,MED STUDENT) History of Present Illness Date Seen by Provider: Feb 05, 2020 Time Seen by Provider: 21:15 Initial Comments Patient is a 54yo female with a PMH of HTN, HLD, GERD, diverticulosis and tobacco use c/o abdominal pain for x2 days. She describes the pain as burning, and like her stomach is "on fire". Her pain is epigastric and radiating around to her back, and she rates it a 10/10. She states nothing makes it better, and nothing in particular worsens the pain. She also complains of nausea, but denies vomiting or hematemesis. She recently presented to [facility] ED on 02/01 for similar symptoms, and was given Protonix, Carafate and Zofran, and admitted. Cardiology and surgery were consulted, and further workup including EKG, echo, CTA, cardiac enzymes and lipase were normal. She was given prescriptions for Protonix and Carafate, but states that she was unable to afford them so they were not filled. She notes the pain is similar to before, but worse tonight Timing/Duration: 2-3 Days Severity/Quality: Burning, Sharp Location: Epigastric Radiation: Back Activities at Onset: None (OENL LOCKHART,MED STUDENT) Initial Comments Additionally, states she has been taking Pepcid OTC as she has not been able to afford her Protonix and Carafate. Also notes she has continued taking her Ibuprofen 800 mg daily, and rubbing diclofenac gel on her abdomen to help with the pain. She is very tearful, stating, "you are missing something" and commenting that something is seriously wrong with her. Denies fevers, chills, cough, shortness of breath, chest pain, or dysuria. (JAMAR PATTERSON APRN) Allergies and Home Medications Allergies Coded Allergies: ciprofloxacin (Verified Allergy, Mild, 08/21/15) metronidazole (Verified Allergy, Mild, 08/21/15) latex (Unverified Allergy, Unknown, 06/06/15) Uncoded Allergies: STERI STRIPS (Allergy, Mild, RASH/ SORES, 11/02/09) Home Medications Cyclobenzaprine HCl 10 Mg Tablet, 10 MG PO DAILY PRN for MUSCLE SPASMS, (Reported) Diclofenac Sodium 20 Gm Gel..gram., 1 GM TP TID PRN for PAIN-BREAKTHROUGH, (Reported) APPLY TO BACK Diphenhydramine HCl 25 Mg Capsule, 25-50 MG PO Q6H PRN for HEADACHE SYMPTOMS, (Reported) Gabapentin 300 Mg Capsule, 300 MG PO BID, (Reported) Hydrocodone/Acetaminophen 1 Each Tablet, 1 EACH PO Q4H Prescribed by: CLARIBEL GORDON on 02/02/201555 Ibuprofen 800 Mg Tablet, 800 MG PO TID PRN for PAIN-MILD, (Reported) Magnesium Oxide 400 Mg Tablet, 400 MG PO DAILY, (Reported) Ondansetron HCl 4 Mg Tablet, 4 MG PO Q8H PRN for NAUSEA/VOMITING-1ST LINE, (Reported) Oxycodone HCl 5 Mg Tablet, 5-10 MG PO Q6H PRN for PAIN-MODERATE (5-7) Prescribed by: NATALYA YIN on 02/06/20 0202 Pantoprazole Sodium 40 Mg Tablet.dr, 40 MG PO DAILY Prescribed by: CLARIBEL GORDON on 02/02/201555 Sucralfate 1 Gm Tablet, 1 GM PO QID Prescribed by: CLARIBEL GORDON on 02/02/201555 Sumatriptan Succinate 100 Mg Tablet, 100 MG PO UD PRN for MIGRAINE, (Reported) 1 TAB AT ONSET OF MIGRAINE AND MAY REPEAT 1 DOSE AFTER 2 HOURS IF HEADACHE PERSISTS. Patient Home Medication List Home Medication List Reviewed: Yes (NATALYA THOMAS MD) Review of Systems Review of Systems Constitutional: No chills, No fever EENTM: No Symptoms Reported Respiratory: Denies Cough, Denies Shortness of Air Cardiovascular: Denies Chest Pain, Denies Lightheadedness, Denies Palpitations Gastrointestinal: See HPI, Abdominal Pain; Denies Constipated, Denies Diarrhea; Nausea, Poor Appetite; Denies Vomiting Genitourinary: Denies Burning, Denies Frequency, Denies Pain, Denies Urgency Musculoskeletal: back pain Skin: no symptoms reported Psychiatric/Neurological: No Symptoms Reported (ONEL LOCKHART MED STUDENT) Past Eazgvzg-Ljyzjo-Klnfum Hx Patient Social History Alcohol Use: Denies Use Number of Drinks Today: Alcohol Beverage of Choice: Wine Recreational Drug Use: No Smoking Status: Current Everyday Smoker Type Used: Cigarettes 2nd Hand Smoke Exposure: Yes Recent Foreign Travel: No Contact w/Someone Who Travel: No Recent Infectious Disease Expo: No Recent Hopitalizations: No Physical Abuse: No Sexual Abuse: No Mistreated: No Fear: No (ONEL LOCKHART MED STUDENT) Immunizations Up To Date Tetanus Booster (TDap): Unknown PED Vaccines UTD: Yes Date of Influenza Vaccine: May 04, 2012 (ONEL LOCKHART MED STUDENT) Seasonal Allergies Seasonal Allergies: No (ONEL LOCKHART MED STUDENT) Past Medical History Surgeries: Yes (OVARIAN CYSTS; EGD/COLONOSCOPY; X 4;HYST/BSO) Abdominal, Appendectomy, Section, Gallbladder, Hysterectomy, Oophorectomy Respiratory: Yes (tobaccoism, PULMONARY NODULES) Currently Using CPAP: No Currently Using BIPAP: No Cardiac: Yes (NEGATIVE STRESS TEST 2012 & 06/2017-EF 77%, ECHO 2013 WITH EF 60% ) Hypertension Neurological: No Reproductive Disorders: Yes (BENIGN UTERINE MASS) Female 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 Sexually Transmitted Disease: No HIV/AIDS: No Genitourinary: Yes Kidney Infection, Bladder Infection Gastrointestinal: Yes (S/P REAL; APPY; ) Gastroesophageal Reflux, Diverticulosis, Gall Bladder Disease Musculoskeletal: Yes Chronic Back Pain Endocrine: No HEENT: No Cancer: No Psychosocial: No Integumentary: No Recent Skin Changes Blood Disorders: No Adverse Reaction/Blood Tranf: No (ONEL LOCKHART MED STUDENT) Family Medical History Cancer 19 FATHER Family history: Hypertension 19 FATHER 19 MOTHER G8 BROTHER History of - anemia G8 SISTER Cancer (ONEL LOCKHART MED STUDENT) Physical Exam Vital Signs Vital Signs - First Documented 02/05/20 20:24 Temp 36.7 Pulse 76 Resp 18 B/P (MAP) 144/81 (102) O2 Delivery Room Air (JAMAR PATTERSON APRN) Vital Signs Capillary Refill : Less Than 3 Seconds (ONEL LOCKHART MED STUDENT) Height/Weight/BMI Height: 5'1.00" Weight: 188lbs. 0.0oz. 85.501633al; 39.00 BMI Method:Stated General Appearance: WD/WN, mild distress HEENT: PERRL/EOMI, pharynx normal; No pharyngeal erythema Neck: non-tender, full range of motion Respiratory: lungs clear, normal breath sounds, no respiratory distress Cardiovascular: regular rate, rhythm, no murmur Gastrointestinal: normal bowel sounds; No guarding, No rebound; tenderness Extremities: normal range of motion, non-tender, no pedal edema, no calf tenderness Neurologic/Psychiatric: alert, normal mood/affect, oriented x 3 Skin: normal color, warm/dry (ONEL LOCKHART MED STUDENT) Gastrointestinal: soft (JAMAR PATTERSON APRN) Progress/Results/Core Measures Results/Orders Lab Results Laboratory Tests Test 02/05/20 22:40 02/05/20 23:42 Range/Units White Blood Count 7.2 4.3-11.0 10^3/uL Red Blood Count 4.73 3.80-5.11 10^6/uL Hemoglobin 14.9 11.5-16.0 g/dL Hematocrit 45 35-52 % Mean Corpuscular Volume 95 80-99 fL Mean Corpuscular Hemoglobin 32 25-34 pg Mean Corpuscular Hemoglobin Concent 33 32-36 g/dL Red Cell Distribution Width 13.0 10.0-14.5 % Platelet Count 218 130-400 10^3/uL Mean Platelet Volume 10.8 9.0-12.2 fL Immature Granulocyte % (Auto) 0 % Neutrophils (%) (Auto) 72 42-75 % Lymphocytes (%) (Auto) 21 12-44 % Monocytes (%) (Auto) 4 0-12 % Eosinophils (%) (Auto) 1 0-10 % Basophils (%) (Auto) 0 0-10 % Neutrophils # (Auto) 5.2 1.8-7.8 10^3/uL Lymphocytes # (Auto) 1.6 1.0-4.0 10^3/uL Monocytes # (Auto) 0.3 0.0-1.0 10^3/uL Eosinophils # (Auto) 0.1 0.0-0.3 10^3/uL Basophils # (Auto) 0.0 0.0-0.1 10^3/uL Immature Granulocyte # (Auto) 0.0 0.0-0.1 10^3/uL Sodium Level 141 135-145 MMOL/L Potassium Level 3.3 L 3.6-5.0 MMOL/L Chloride Level 99 98-107 MMOL/L Carbon Dioxide Level 26 21-32 MMOL/L Anion Gap 16 H 5-14 MMOL/L Blood Urea Nitrogen 11 7-18 MG/DL Creatinine 0.89 0.60-1.30 MG/DL Estimat Glomerular Filtration Rate > 60 BUN/Creatinine Ratio 12 Glucose Level 97 70-105 MG/DL Calcium Level 9.5 8.5-10.1 MG/DL Corrected Calcium 8.5-10.1 MG/DL Total Bilirubin 2.9 H 0.1-1.0 MG/DL Aspartate Amino Transf (AST/SGOT) 550 H 5-34 U/L Alanine Aminotransferase (ALT/SGPT) 901 H 0-55 U/L Alkaline Phosphatase 338 H 40-136 U/L Troponin I < 0.028 <0.028 NG/ML C-Reactive Protein High Sensitivity 0.39 0.00-0.50 MG/DL Total Protein 8.1 6.4-8.2 GM/DL Albumin 4.6 H 3.2-4.5 GM/DL Lipase 24 8-78 U/L Urine Color DARK YELLOW Urine Clarity CLEAR Urine pH 6.0 5-9 Urine Specific [place] >=1.030 1.016-1.022 Urine Protein 1+ H NEGATIVE Urine Glucose (UA) TRACE H NEGATIVE Urine Ketones 1+ H NEGATIVE Urine Nitrite NEGATIVE NEGATIVE Urine Bilirubin 2+ H NEGATIVE Urine Urobilinogen 4.0 < = 1.0 MG/DL Urine Leukocyte Esterase NEGATIVE NEGATIVE Urine RBC (Auto) 2+ H NEGATIVE Urine RBC 25-50 H /HPF Urine WBC NONE /HPF Urine Squamous Epithelial Cells 2-5 /HPF Urine Crystals NONE /LPF Urine Bacteria TRACE /HPF Urine Casts NONE /LPF Urine Mucus LARGE H /LPF Urine Culture Indicated NO (JAMAR PATTERSON APRN) My Orders Orders - JAMAR PATTERSON APRN Lidocaine 2% Viscous 15 Ml (Xylocaine Vi (02/05/20 21:45) Antacid Suspension (Mylanta Suspension (02/05/20 21:45) Comprehensive Metabolic Panel (02/05/20 22:09) Lipase (02/05/20 22:09) Ua Culture If Indicated (02/05/20 22:09) Ed Iv/Invasive Line Start (02/05/20 22:09) Cbc With Automated Diff (02/05/20 22:09) Ekg Tracing (02/05/20 22:09) Troponin I (02/05/20 22:09) Pantoprazole Injection (Protonix Injecti (02/05/20 22:15) Fentanyl Injection (Sublimaze Injection (02/05/20 22:15) (JAMAR PATTERSON FORM BUILDER) Medications Given in ED Current Medications Medications Dose Ordered Sig/Parvin Route Start Time Stop Time Status Last Admin Dose Admin Al Hydrox/Mg Hydrox/Simethicone 30 ml ONCE ONCE PO 02/05/20 21:45 02/05/20 21:46 DC 02/05/20 21:45 30 ML Fentanyl Citrate 25 mcg ONCE ONCE IVP 02/05/20 22:15 02/05/20 22:16 DC 02/05/20 22:39 25 MCG Iohexol 100 ml ONCE ONCE IV 02/06/20 00:00 02/06/20 00:01 DC 02/06/20 00:31 100 ML Lidocaine HCl 15 ml ONCE ONCE PO 02/05/20 21:45 02/05/20 21:46 DC 02/05/20 21:45 15 ML Pantoprazole 40 mg ONCE ONCE IV 02/05/20 22:15 02/05/20 22:16 DC 02/05/20 22:39 40 MG Sodium Chloride 80 ml ONCE ONCE IV 02/06/20 00:00 02/06/20 00:01 DC 02/06/20 00:31 80 ML (JAMAR PATTERSON FORM BUILDER) Vital Signs/I&O 02/05/20 20:24 Temp 36.7 Pulse 76 Resp 18 B/P (MAP) 144/81 (102) O2 Delivery Room Air (JAMAR PATTERSON FORM BUILDER) Blood Pressure Mean: 102 Progress Progress Note : Time: 21:45 Progress Note Ordered GI cocktail for pain as symptoms are likely related to untreated gastritis and continued use of NSAIDs. 2220: Reported no improvement of symptoms with GI cocktail. Continued to express that something is seriously wrong with her; initiated further workup. CBC, CMP, Lipase, EKG, Troponin, and UA ordered. (JAMAR PATTERSON FORM BUILDER) Progress Note : Progress Note I assumed care of this patient from Tania Patterson. Labs were reviewed and she was found to have significantly elevated bilirubin and liver enzymes. CT of the abdomen and pelvis was obtained. No significant abnormalities were identified. I discussed the elevated transaminases with Dr. Snell. He recommended offering admission for pain control and monitoring of the enzyme levels. If symptoms and/or levels worsen, then transfer to a facility with ERCP and gastroenterology services would be necessary. Alternatively, patient could be treated and work- up could pursue on an outpatient basis. Patient desired to be admitted. After discussing this with the hospitalist, admission was declined due to likely need for gastroenterology and ERCP or MRCP services. We are not able to provide the services at [facility]. Admission was therefore declined. At this point patient was offered transfer versus outpatient work-up. She elects outpatient work-up. A dose of oxycodone was given to her along with a prescription. She reports having a supply of Zofran at home. A hepatitis panel was added to the blood work. (NATAYLA THOMAS MD) Initial ECG Impression Date: Feb 05, 2020 Initial ECG Impression Time: 22:21 Initial ECG Rate: 59 Initial ECG Rhythm: S.Arash Initial ECG Impression: Nonspecific Changes (JAMAR PATTERSON FORM BUILDER) Diagnostic Imaging Diagonstic Imaging: CT Plain Films/CT/US/NM/MRI: abdomen, pelvis (NATALYA THOMAS MD) Consults : Consults Notes CT viewed by me and stat rad report reviewed. No acute abnormalities were appreciated to explain her pain. (NATALYA THOMAS MD) Transfer of Care Time: 23:10 Care transferred to: Dr. Yin (JAMAR PATTERSON FORM BUILDER) Departure Impression Primary Impression: Upper abdominal pain Additional Impressions: Hematuria Qualified Codes: R31.9 - Hematuria, unspecified Elevated liver enzymes Disposition: HOME, SELF-CARE Condition: Improved Departure-Patient Inst. Decision time for Depature: 02:00 (NATALYA THOMAS MD) Referrals: [facility] (PCP/Family) Primary Care Physician Patient Instructions: Severe Abdominal Pain, Adult (DC) Add. Discharge Instructions: Follow-up at the [facility] and with a surgeon or drafter cartographic as soon as possible. Observe a clear liquid diet for the next 24 hours. Then gradually advance your diet with small quantities of bland food low in fats and oils as tolerated. Drink plenty of clear liquids to stay well-hydrated. Avoid use of Tylenol (acetaminophen) containing products. Also avoid NSAID medications such as ibuprofen or naproxen. Use oxycodone as prescribed for pain. Oxycodone may cause drowsiness and constipation. Do not drive, operate machinery, or make important decisions while on oxycodone. You may wish to use a stool softener while on oxycodone to prevent constipation. Use Zofran as previously prescribed for nausea and vomiting. Return to the emergency room for worsening symptoms or new symptoms such as fever. All discharge instructions reviewed with patient and/or family. Voiced understanding. Scripts Oxycodone HCl (Oxycodone HCl) 5 Mg Tablet 5-10 MG PO Q6H PRN for PAIN-MODERATE (5-7), #20 TAB Prov: NATALYA THOMAS MD 02/06/20 I have personally examined the patient and the history & physical as documented by medical student Onel Lockhart MS4 and agree with the assessment findings. Physical exam: Alert and oriented x 3. HEENT- EOMI, normal inspection. Lung CTA, breathing even and non labored. HRR, no murmurs, rubs, or edema, 2+ radial pulses bilat. Abd is soft, tender in the epigastric region, normoactive bowel sounds Skin is pink/warm/dry, no rashes/lesions. (JAMAR PATTERSON APRN) Copy Copies To 1: BHAVIN CANAS MD Copies To 2: EDITH SNELL JOSEPH,MED STUDENT Feb 05, 2020 21:34 JAMAR PATTERSON APRN Feb 05, 2020 22:40 NATALYA THOMAS MD Feb 06, 2020 00:33
[2020-02-05] MEDS ORDERED: LIDOCAINE 2% VISCOUS 15 ML UDC PO ONE (21:45)
[2020-02-05] MEDS ORDERED: ANTACID SUSP 30 ML UDC (MYLANTA) PO ONE (21:45)
[2020-02-05] MEDS ORDERED: PANTOPRAZOLE 40 MG (PROTONIX) VIAL IV ONE (22:15)
[2020-02-05] MEDS ORDERED: fentaNYL INJECTION 100 MCG/2 ML AMP IVP ONE (22:15)
[2020-02-05 22:48] LABS: BASOPHILS % (AUTO) 0 % (0-10); EOSINOPHILS # (AUTO) 0.1 10^3/uL (0.0-0.3); EOSINOPHILS % (AUTO) 1 % (0-10); HEMATOCRIT 45 % (35-52); HEMOGLOBIN 14.9 g/dL (11.5-16.0); LYMPHOCYTES # (AUTO) 1.6 10^3/uL (1.0-4.0); LYMPHOCYTES % (AUTO) 21 % (12-44); MEAN CORPUSCULAR HEMOGLOBIN 32 pg (25-34); MEAN CORPUSCULAR HGB CONC 33 g/dL (32-36); MEAN CORPUSCULAR VOLUME 95 fL (80-99); MEAN PLATELET VOLUME 10.8 fL (9.0-12.2); MONOCYTES # (AUTO) 0.3 10^3/uL (0.0-1.0); MONOCYTES % (AUTO) 4 % (0-12); NEUTROPHILS # (AUTO) 5.2 10^3/uL (1.8-7.8); NEUTROPHILS % (AUTO) 72 % (42-75); PLATELET COUNT 218 10^3/uL (130-400); WHITE BLOOD COUNT 7.2 10^3/uL (4.3-11.0)
[2020-02-05 22:55] LABS: ALBUMIN 4.6 GM/DL (3.2-4.5)
[2020-02-05 22:56] LABS: CHLORIDE 99 MMOL/L (98-107); POTASSIUM 3.3 MMOL/L (3.6-5.0); SODIUM 141 MMOL/L (135-145)
[2020-02-05 22:57] LABS: CALCIUM 9.5 MG/DL (8.5-10.1)
[2020-02-05 22:58] LABS: GLUCOSE 97 MG/DL (70-105); TOTAL PROTEIN 8.1 GM/DL (6.4-8.2)
[2020-02-05 22:59] LABS: CARBON DIOXIDE 26 MMOL/L (21-32)
[2020-02-05 23:00] LABS: BILIRUBIN,TOTAL 2.9 MG/DL (0.1-1.0)
[2020-02-05 23:01] LABS: ALKALINE PHOSPHATASE 338 U/L (40-136)
[2020-02-05 23:02] LABS: CREATININE SERUM 0.89 MG/DL (0.60-1.30); GFR ESTIMATED > 60
[2020-02-05 23:03] LABS: BUN/CREATININE RATIO 12
[2020-02-05 23:05] LABS: ALANINE AMINOTRANSFERASE 901 U/L (0-55); LIPASE 24 U/L (8-78)
[2020-02-05 23:47] LABS: CLARITY,URINE CLEAR; COLOR,URINE DARK YELLOW; GLUCOSE, URINE (UA) TRACE (NEGATIVE); KETONES,URINE 1+ (NEGATIVE); LEUKOCYTE ESTERASE ,URINE NEGATIVE (NEGATIVE); NITRITE,URINE NEGATIVE (NEGATIVE); PROTEIN,URINE 1+ (NEGATIVE)
[2020-02-05 23:54] LABS: BACTERIA,URINE TRACE /HPF; BILIRUBIN,URINE 2+ (NEGATIVE); RBC,URINE 25-50 /HPF
[2020-02-06] MEDS ORDERED: NS 100 ML (IVPB) BAG IV ONE
[2020-02-06] MEDS ORDERED: HOLD METFORMIN - RECEIVED CONTRAST 20 ML VIAL IV SCH
[2020-02-06] MEDS ORDERED: IOHEXOL 350 MG/ML 100 ML (OMNIPAQUE 350) VIAL IV ONE
[2020-02-06] MEDS ORDERED: OXYC5TAB PO (02:02)
[2020-02-06 02:10] VITALS: BP 132/64
--- NOTE | 2020-02-06 07:20 | Diagnostic Imaging Report ---
EXAMINATION: CT Abdomen and Pelvis with intravenous contrast. TECHNIQUE: Multiple contiguous axial images were obtained through the abdomen and pelvis after the uneventful administration of intravenous contrast. All CT scans use one or more of the following dose optimizing techniques: automated exposure control, MA and/or KvP adjustment based on a patient size and exam type, or iterative reconstruction. HISTORY: Elevated liver enzymes COMPARISON: 02/02/2020 FINDINGS: Limited views of the lower thorax show calcified granuloma in the left lower lobe. The liver is normal without focal lesion. There is no biliary ductal dilation. Gallbladder is surgically absent. Pancreas is normal. Spleen is normal. Adrenal glands are normal. The kidneys are normal. There is no hydronephrosis. Urinary bladder is normal. Visualized bowel is normal in caliber without obstruction or inflammation. There is diverticulosis without diverticulitis. No free fluid or air. No abdominal or pelvic lymphadenopathy. Aorta is normal in caliber without aneurysm. There are no suspicious osseus lesions. IMPRESSION: 1. No acute abnormality in the abdomen or pelvis. There is no significant disagreement with the preliminary report. Dictated by: Dictated on workstation # [id number]
[2020-02-07 13:29] LABS: HEPATITIS C ANTIBODY C Non-Reactive (Non-Reactive)
== END 2020-02-06 02:10 | disposition home or self-care (01) ==
LOC: EDUNIT# 20:06 → ER 20:08
DX: R10.13 Epigastric pain (principal); R31.9 Hematuria, unspecified; R74.01 Elevation of levels of liver transaminase levels; G89.29 Other chronic pain; M54.9 Dorsalgia, unspecified; K21.9 Gastro-esophageal reflux disease without esophagitis; F17.210 Nicotine dependence, cigarettes, uncomplicated; Z82.49 Family history of ischemic heart disease and other diseases of the circulatory system; Z80.9 Family history of malignant neoplasm, unspecified; Z88.1 Allergy status to other antibiotic agents; Z91.040 Latex allergy status; Z88.8 Allergy status to other drugs, medicaments and biological substances; Z79.891 Long term (current) use of opiate analgesic
CPT/HCPCS: 36415; 74177; 80053; 80074; 81000; 83690; 84484; 85025; 86141; 93005

== ENCOUNTER 2020-02-28 23:19 | Emergency (ER) | payer SELFPAY ==
[~2020-02-28] VITALS: Ht 155 cm; Wt 92.9 kg
[~2020-02-28 23:19] MED LIST changes: +OXYC5TAB PO
--- NOTE | 2020-02-29 00:03 | ED General ---
General Chief Complaint: General Problems/Pain Stated Complaint: RASH,SWOLLEN EYES,DIZZY,PALPITATIONS Nursing Triage Note: PT AMBULATES TO ROOM #7 WITH VAGUE C/O TIREDNESS, DIZZINESS, SHAKINESS, ET GENERALIZED ITHCINESS. 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 REPORTS RECENT INCREASE IN LIVER ENZYMES WITH UNKNOWN CAUSE. 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 A&OX4. Nursing Sepsis Screen: No Definite Risk Source of Information: Patient Exam Limitations: No Limitations History of Present Illness Date Seen by Provider: Feb 28, 2020 Time Seen by Provider: 23:50 Initial Comments Patient is a 54-year-old female who presents to the emergency room today with multiple somatic complaints. Patient complains of extreme fatigue and lethargy having slept 16 hours today. She complains of feeling dizzy and shaky. Patient complains of waking up and finding that her eyes were swollen and red. She denies itching or drainage to her bilateral eyes. Patient states that she got up twice today and took Benadryl for the swelling and redness. The last dose of Benadryl she took was around 4 5:00 this evening. Patient states she finally got up and had something to eat around 7. She states she continued to feel fatigued and tired and decided to come to the emergency room for evaluation. Patient reports that she has a history of elevated liver enzymes that are "3 times normal". She is being followed by Dr. Contreras for this as well as [facility]. She denies any recent fevers or chills or productive cough. She denies specific abdominal pain currently. She has had some nausea this evening. She denies any diarrhea, black or bloody stools. She denies any dysuria, urgency or frequency. She denies swelling in her lower extremities or rashes. All other review of systems reviewed and negative except as stated. Timing/Duration: 4-6 Hours Severity: Mild Allergies and Home Medications Allergies Coded Allergies: ciprofloxacin (Verified Allergy, Mild, 08/21/15) metronidazole (Verified Allergy, Mild, 08/21/15) latex (Unverified Allergy, Unknown, 06/06/15) Uncoded Allergies: STERI STRIPS (Allergy, Mild, RASH/ SORES, 11/02/09) Home Medications Cyclobenzaprine HCl 10 Mg Tablet, 10 MG PO DAILY PRN for MUSCLE SPASMS, (Reported) Diclofenac Sodium 20 Gm Gel..gram., 1 GM TP TID PRN for PAIN-BREAKTHROUGH, (Reported) APPLY TO BACK Diphenhydramine HCl 25 Mg Capsule, 25-50 MG PO Q6H PRN for HEADACHE SYMPTOMS, (Reported) Gabapentin 300 Mg Capsule, 300 MG PO BID, (Reported) Hydrocodone/Acetaminophen 1 Each Tablet, 1 EACH PO Q4H Prescribed by: CLARIBEL GORDON on 02/02/201555 Ibuprofen 800 Mg Tablet, 800 MG PO TID PRN for PAIN-MILD, (Reported) Magnesium Oxide 400 Mg Tablet, 400 MG PO DAILY, (Reported) Ondansetron HCl 4 Mg Tablet, 4 MG PO Q8H PRN for NAUSEA/VOMITING-1ST LINE, (Reported) Oxycodone HCl 5 Mg Tablet, 5-10 MG PO Q6H PRN for PAIN-MODERATE (5-7) Prescribed by: NATALYA HANKS on 02/06/20 0202 Pantoprazole Sodium 40 Mg Tablet.dr, 40 MG PO DAILY Prescribed by: CLARIBEL GORDON on 02/02/201555 Sucralfate 1 Gm Tablet, 1 GM PO QID Prescribed by: CLARIBEL GORDON on 02/02/201555 Sumatriptan Succinate 100 Mg Tablet, 100 MG PO UD PRN for MIGRAINE, (Reported) 1 TAB AT ONSET OF MIGRAINE AND MAY REPEAT 1 DOSE AFTER 2 HOURS IF HEADACHE PERSISTS. Patient Home Medication List Home Medication List Reviewed: Yes Review of Systems Review of Systems Constitutional: no symptoms reported EENTM: other (swollen red eyes) Respiratory: no symptoms reported Cardiovascular: palpitations Gastrointestinal: nausea Genitourinary: no symptoms reported Musculoskeletal: no symptoms reported Skin: no symptoms reported All Other Systems Reviewed Negative Unless Noted: Yes Past Zcjbvem-Zwquxm-Mpbzpj Hx Patient Social History Alcohol Use: Denies Use Number of Drinks Today: HH Alcohol Beverage of Choice: Wine Recreational Drug Use: No Smoking Status: Current Everyday Smoker Type Used: Cigarettes 2nd Hand Smoke Exposure: Yes Recent Foreign Travel: No Contact w/Someone Who Travel: No Recent Infectious Disease Expo: No Recent Hopitalizations: No Immunizations Up To Date Tetanus Booster (TDap): Unknown PED Vaccines UTD: Yes Date of Influenza Vaccine: May 04, 2012 Seasonal Allergies Seasonal Allergies: No Past Medical History Surgeries: Yes (OVARIAN CYSTS; EGD/COLONOSCOPY; X 4;HYST/BSO) Abdominal, Appendectomy, Section, Gallbladder, Hysterectomy, Oophorectomy Respiratory: Yes (tobaccoism, PULMONARY NODULES) Currently Using CPAP: No Currently Using BIPAP: No Cardiac: Yes (NEGATIVE STRESS TEST 2012 & 06/2017-EF 77%, ECHO 2013 WITH EF 60% ) Hypertension Neurological: No Reproductive Disorders: Yes (BENIGN UTERINE MASS) Female 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 Sexually Transmitted Disease: No HIV/AIDS: No Genitourinary: Yes Kidney Infection, Bladder Infection Gastrointestinal: Yes (S/P REAL; APPY; ) Gastroesophageal Reflux, Diverticulosis, Gall Bladder Disease Musculoskeletal: Yes Chronic Back Pain Endocrine: No HEENT: No Cancer: No Psychosocial: No Integumentary: No Recent Skin Changes Blood Disorders: No Adverse Reaction/Blood Tranf: No Family Medical History Cancer 19 FATHER Family history: Hypertension 19 FATHER 19 MOTHER G8 BROTHER History of - anemia G8 SISTER Cancer Physical Exam Vital Signs Vital Signs - First Documented 02/28/20 23:30 Temp 36.1 Pulse 94 Resp 18 B/P (MAP) 149/102 (118) Pulse Ox 100 O2 Delivery Room Air Capillary Refill : Less Than 3 Seconds Height, Weight, BMI Height: 5'1.00" Weight: 188lbs. 0.0oz. [id number]; 38.00 BMI Method:Stated General Appearance: No Apparent Distress, WD/WN Eyes: Bilateral Eye PERRL, Bilateral Eye EOMI HEENT: PERRL/EOMI, Other (Patient has circumferential mild edema of the upper and lower lids of the right eye with mild erythema; left eye appears normal; pupils equal round reactive to light, extraocular muscles intact) Neck: Normal Inspection, Non Tender, Supple Respiratory: Lungs Clear, Normal Breath Sounds Cardiovascular: Regular Rate, Rhythm, No Gallop, No Murmur Gastrointestinal: Normal Bowel Sounds, Non Tender, Soft Extremity: Normal Capillary Refill, Normal Range of Motion, Non Tender, No Pedal Edema Neurologic/Psychiatric: Alert, Oriented x3, No Motor/Sensory Deficits, Normal Mood/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, communications 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 Norm as Tested Skin: Normal Color, Warm/Dry Progress/Results/Core Measures Suspected Sepsis Recent Fever Within 48 Hours: No Infection Criteria Present: None New/Unexplained Altered Menta: No Sepsis Screen: No Definite Risk SIRS Temperature: Pulse: 94 Respiratory Rate: 18 Blood Pressure 149 /102 Mean: 118 Laboratory Tests 02/29/20 00:17: Creatinine 0.82, Total Bilirubin 0.5 Results/Orders Lab Results Laboratory Tests Test 02/29/20 00:17 Range/Units Sodium Level 142 135-145 MMOL/L Potassium Level 3.2 L 3.6-5.0 MMOL/L Chloride Level 103 98-107 MMOL/L Carbon Dioxide Level 28 21-32 MMOL/L Anion Gap 11 5-14 MMOL/L Blood Urea Nitrogen 14 7-18 MG/DL Creatinine 0.82 0.60-1.30 MG/DL Estimat Glomerular Filtration Rate > 60 BUN/Creatinine Ratio 17 Glucose Level 101 70-105 MG/DL Calcium Level 9.1 8.5-10.1 MG/DL Corrected Calcium 8.9 8.5-10.1 MG/DL Total Bilirubin 0.5 0.1-1.0 MG/DL Aspartate Amino Transf (AST/SGOT) 17 5-34 U/L Alanine Aminotransferase (ALT/SGPT) 23 0-55 U/L Alkaline Phosphatase 97 40-136 U/L Total Protein 7.3 6.4-8.2 GM/DL Albumin 4.3 3.2-4.5 GM/DL My Orders Orders - DOREEN CASTLE MD Comprehensive Metabolic Panel (02/28/20 23:57) Vital Signs/I&O 02/28/20 23:30 Temp 36.1 Pulse 94 Resp 18 B/P (MAP) 149/102 (118) Pulse Ox 100 O2 Delivery Room Air Capillary Refill : Less Than 3 Seconds Blood Pressure Mean: 118 Departure Impression Primary Impression: Multiple somatic complaints Additional Impression: Swollen eyelid Qualified Codes: H02.843 - Edema of right eye, unspecified eyelid Disposition: HOME, SELF-CARE Condition: Stable Departure-Patient Inst. Decision time for Depature: 01:01 Referrals: [facility] (PCP/Family) Primary Care Physician Patient Instructions: Fatigue (DC) Add. Discharge Instructions: Drink plenty of fluids to stay well-hydrated. You can take at maximum 50 mg of Benadryl every 4-6 hours as needed for itching, redness and swelling. Your liver function studies were in the normal range today. Please follow-up with your primary care physician through [facility] this week. Return to the emergency room for any worsening symptoms, shortness of breath, swelling, any other emergent concerns Copy Copies To 1: MALA MISTRY KATHRYN M MD Feb 29, 2020 00:03
[2020-02-29 00:38] LABS: ALBUMIN 4.3 GM/DL (3.2-4.5); CHLORIDE 103 MMOL/L (98-107); POTASSIUM 3.2 MMOL/L (3.6-5.0); SODIUM 142 MMOL/L (135-145)
[2020-02-29 00:39] LABS: CALCIUM 9.1 MG/DL (8.5-10.1)
[2020-02-29 00:40] LABS: GLUCOSE 101 MG/DL (70-105); TOTAL PROTEIN 7.3 GM/DL (6.4-8.2)
[2020-02-29 00:42] LABS: BILIRUBIN,TOTAL 0.5 MG/DL (0.1-1.0); CARBON DIOXIDE 28 MMOL/L (21-32)
[2020-02-29 00:44] LABS: ALKALINE PHOSPHATASE 97 U/L (40-136); CREATININE SERUM 0.82 MG/DL (0.60-1.30); GFR ESTIMATED > 60
[2020-02-29 00:45] LABS: BUN/CREATININE RATIO 17
[2020-02-29 00:47] LABS: ALANINE AMINOTRANSFERASE 23 U/L (0-55)
[2020-02-29 01:07] VITALS: BP 132/101
== END 2020-02-29 01:07 | disposition home or self-care (01) ==
LOC: EDUNIT# 23:19 → ER 23:24
DX: F45.0 Somatization disorder (principal); H02.842 Edema of right lower eyelid; H02.841 Edema of right upper eyelid; K21.9 Gastro-esophageal reflux disease without esophagitis; G89.29 Other chronic pain; M54.9 Dorsalgia, unspecified; Z82.49 Family history of ischemic heart disease and other diseases of the circulatory system; Z80.9 Family history of malignant neoplasm, unspecified; F17.210 Nicotine dependence, cigarettes, uncomplicated; Z91.040 Latex allergy status; Z88.1 Allergy status to other antibiotic agents; Z88.8 Allergy status to other drugs, medicaments and biological substances; Z79.891 Long term (current) use of opiate analgesic
CPT/HCPCS: 36415; 80053

== ENCOUNTER → 2021-11-28 | Outpatient (CLI) | payer MEDICARE ==
[~2021-11-28] VITALS: Ht 154.9 cm; Wt 99.8 kg
[~2021-11-28] MED LIST changes: +CYCL10TA25 PO; -CYCL10TA9 PO; +KETO30SY2 IJ; -LISI1TAB26 PO; +LISI1TAB48 PO; +OMEP20TA56 PO; -OMEP20TA7 PO; +ONAB100V IJ; +PROP60TA17 PO; +SCOP1PAT10 TD; -SCOP1PAT11 TD
== END ==
LOC: PREOP 05:42
PROVIDERS: ATTEND Surgery
DX: Z01.818 Encounter for other preprocedural examination (principal)

== ENCOUNTER 2021-12-04 08:57 | Day surgery (SDC) | payer MEDICARE ==
[~2021-12-04] VITALS: Ht 154.9 cm; Wt 99.8 kg
[2021-12-04] MEDS ORDERED: LACTATED RINGERS 1,000 ML IV STA (09:07)
[2021-12-04 09:20] VITALS: BP 143/74
--- NOTE | 2021-12-04 09:47 | Progress Note-Pre Operative ---
Pre-Operative Progress Note Date of Available H&P: Nov 07, 2021 Date H&P Reviewed: Dec 04, 2021 Time H&P Reviewed: 09:46 History & Physical: H&P Reviewed, Patient Examed, No changes noted Pre-Operative Diagnosis: hx of diverticulitis EDITH SNELL DO Dec 04, 2021 09:47
[2021-12-04] MEDS ORDERED: PROPOFOL INJECTION 50 ML IV ONE (10:27)
[2021-12-04] MEDS ORDERED: MIDAZOLAM 2 MG/2 ML (VERSED) VIAL ONE (10:27)
[2021-12-04 11:12] VITALS: BP 99/52
--- NOTE | 2021-12-04 11:15 | Discharge Inst-Simple/Standard ---
Discharge Inst-Standard Patient Instructions/Follow Up Plan of Care/Instructions/FU: 2 weeks Diane Activity as Tolerated: Yes Discharge Diet: Regular Diet (high fiber) EDITH SNELL DO Dec 04, 2021 11:15
[2021-12-04 11:19] VITALS: BP 101/55
[2021-12-04 11:20] VITALS: BP 101/55
[2021-12-04 11:50] VITALS: BP 128/62
--- NOTE | 2021-12-04 11:53 | Anesthesia-General Post-Op ---
MAC Patient Condition Mental Status/LOC: Same as Preop Cardiovascular: Satisfactory Nausea/Vomiting: Absent Respiratory: Satisfactory Pain: Controlled Complications: Absent Post Op Complications Complications None Follow Up Care/Instructions Patient Instructions None needed. Anesthesiology Discharge Order Discharge Order Patient is doing well, no complaints, stable vital signs, no apparent adverse anesthesia problems. No complications reported per nursing. LUIS ALBERTO CARRANZA CRNA Dec 04, 2021 11:53
[2021-12-04 12:05] VITALS: BP 128/62
--- NOTE | 2021-12-04 14:26 | OPERATIVE REPORT ---
DATE OF SERVICE: 12/04/2021 PREOPERATIVE DIAGNOSIS: History of diverticulitis. POSTOPERATIVE DIAGNOSES: Diverticulosis and rectal polyp. PROCEDURES PERFORMED: Colonoscopy with snare polypectomy. SURGEON: Edith Contreras DO. ANESTHESIA: Per HAT RENOVATOR. ESTIMATED BLOOD LOSS: None. COMPLICATIONS: None. INDICATIONS FOR PROCEDURE: The patient is a 56-year-old female with a history of diverticulitis. She understands the risks and benefits of the procedure and wishes to proceed. Consent was signed in the chart. DESCRIPTION OF PROCEDURE: The patient was taken to the endoscopy suite and placed in a left lateral recumbent position. Timeout was performed. Digital rectal exam was performed. Palpable polyp within the rectum. Scope was inserted in the rectum and advanced all the way to the cecum with minimal difficulty. Prep was adequate. Scope was slowly retracted back. No polyps, masses or ulcerations within the cecum, ascending, transverse, descending, and sigmoid colon. Throughout the entire colon was diverticulitis present. Once in the rectum, the scope was retroflexed noting a polyp. Scope was returned to its normal position. Snare polypectomy was performed. This was obtained for specimen. Scope was then slowly retracted back until completely removed. The patient tolerated the procedure well without any complications and was taken to the recovery room in stable condition. RECOMMENDATIONS: The patient will need repeat colonoscopy in five years. Any issues before that will be seen at that time. The patient will recommend high fiber diet due to diverticulosis present. The patient will follow up in two weeks to discuss pathology results. Job ID: [id number] DocumentID: [id number] Dictated Date: 12/04/2021 11:17:53 Automobile Service Advisor Date: 12/04/2021 14:25:33 Dictated By: EDITH CONTRERAS DO
== END 2021-12-04 12:05 | disposition home or self-care (01) ==
LOC: ENDO 08:57
PROVIDERS: ATTEND Surgery
DX: D12.8 Benign neoplasm of rectum (principal); K57.30 Diverticulosis of large intestine without perforation or abscess without bleeding; F17.210 Nicotine dependence, cigarettes, uncomplicated; E66.9 Obesity, unspecified; Z68.41 Body mass index [BMI] 40.0-44.9, adult
CPT/HCPCS: 88305